=== PATIENT | male | born 2005 | race Two or more races ===

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

== ENCOUNTER 2024-02-26 13:04 | Emergency (ER) | payer MEDICAID ==
[~2024-02-26] VITALS: Ht 170.2 cm; Wt 65.0 kg
[~2024-02-26 13:04] MED LIST: CEPH500C PO
[2024-02-26] MEDS ORDERED: NAPR-957 PO (15:31)
[2024-02-26] MEDS ORDERED: [UNRECOGNIZED DRUG - CODE] XX (15:31)
[2024-02-26 16:34] VITALS: PULSE 72; RESP 16; O2SAT 97
[2024-02-26] MEDS: KETOROLAC TROMETH 60MG/2ML VIAL IM ONE (16:34)
[2024-02-26 16:38] VITALS: BP 115/75; PULSE 72; RESP 16; TEMP 98.3; O2SAT 97
== END 2024-02-26 16:39 | disposition home or self-care (01) ==
LOC: ER 13:04
DX: M25.531 Pain in right wrist (principal); Z79.899 Other long term (current) drug therapy
CPT/HCPCS: 73110; 96372; 99283; J1885